=== PATIENT | male | born 1990 | race Caucasian/White ===

== ENCOUNTER 2021-09-27 18:54 | Emergency (ER) | payer BC ==
[~2021-09-27] VITALS: Ht 165.1 cm; Wt 75.0 kg
[2021-09-27 19:09] VITALS: BP 120/70
[2021-09-27] MEDS: morphine 4 MG/ML inj SYRINge IM ONE (19:39)
[2021-09-27] MEDS: HYDROcodone/acetaminophen 10/325mg tab PO ONE (19:42)
[2021-09-27] MEDS ORDERED: HYDR-3972 PO (20:51)
== END 2021-09-27 20:59 | disposition home or self-care (01) ==
LOC: ER 18:55
DX: S50.01XA Contusion of right elbow, initial encounter (principal); W19.XXXA Unspecified fall, initial encounter; Y93.89 Activity, other specified; Y92.89 Other specified places as the place of occurrence of the external cause; Y99.8 Other external cause status
CPT/HCPCS: 29105; 73080; 96372; 99283; J2270